=== PATIENT | female | born 1960 | race Caucasian/White ===

== ENCOUNTER → 2021-07-11 | Outpatient (CLI) | payer OTHER ==
[~2021-07-11] MED LIST: AZITHROMYCIN 2250 MG PO; BREO ELLIPTA 11 EACH INH; DILTIAZEM 24HR240 M1 PO; IPRATROPIU0.2 MG/1 M INH; PROAIR HFA8.5 GM INH; TRIAMTERENE-HC1 EAC3 PO
[2021-07-11 08:42] LABS: HEMOGLOBIN 12.1 gm/dL (12.0-15.0); MCH 28.7 pg (26.0-34.0); MCHC 33.6 g/dL (28.0-37.0); MCV 85.5 fL (80.0-100.0); RBC 4.21 mil/uL (4.20-5.00); WBC 6.6 thou/uL (4.0-11.0)
[2021-07-11 08:50] LABS: ALBUMIN 4.1 g/dL (3.4-5.0); CALCIUM 9.2 mg/dL (8.5-10.1); CREATININE 1.5 mg/dL (0.6-1.0); POTASSIUM 3.5 mmol/L (3.5-5.1)
[2021-07-11 08:56] LABS: PROTIME 10.9 Seconds (10.5-12.1)
[2021-07-11 09:07] LABS: URINE BILIRUBIN NEGATIVE (Negative); URINE BLOOD NEGATIVE (Negative); URINE CLARITY CLEAR; URINE COLOR YELLOW; URINE GLUCOSE-RANDOM* NEGATIVE (Negative); URINE KETONES NEGATIVE (Negative); URINE NITRITE-REFLEX NEGATIVE (Negative); URINE PROTEIN (DIPSTICK) NEGATIVE (Negative); URINE SPECIFIC GRAVITY 1.015 (1.005-1.035); URINE UROBILINOGEN 0.2 E.U./dl (0.2-1.0)
[2021-07-11 09:37] LABS: URINE LEUKOCYTES-REFLEX 1+ (Negative)
[2021-07-11 13:28] LABS: BACTERIA-REFLEX >30 Many /HPF (None Seen); CASTS None Seen /LPF (None Seen); CRYSTALS None Seen /LPF (None Seen); SQUAMOUS 0-3 Few /LPF (0-3); URINE RBC None Seen /HPF (NONE SEEN); URINE WBC-REFLEX 0-5 Rare /HPF (0-5)
== END ==
LOC: PAC 08:04
PROVIDERS: ATTEND Orthopaedic Surgery
DX: Z01.812 Encounter for preprocedural laboratory examination (principal); Z20.822 Contact with and (suspected) exposure to COVID-19; M16.11 Unilateral primary osteoarthritis, right hip

== ENCOUNTER 2021-07-18 06:23 | Day surgery (SDC) | payer OTHER ==
[~2021-07-18] VITALS: Ht 165.1 cm; Wt 71.7 kg
[2021-07-18 07:30] VITALS: BP 141/65
[2021-07-18 11:37] VITALS: BP 109/59
[2021-07-18 13:57] VITALS: BP 109/59
--- NOTE | 2021-07-18 15:13 | NUR ---
ASSUMED CARE OF PT FROM PACU AT 1100 THIS MORNING. PT HAD RT HIP TTL REPLACEMENT. PT IS A/OX4, SKIN INTACT WITH INCISION SITE ON RT HIP AREA WITH PLACIDO DRESSING, C/D/I. PT STATED SHE WOULD LIKE TO GO HOME TODAY. ASSESSMENTS NOTED IN CHART AND OTHERWISE UNREMARKABLE. CALL LIGHT AND OTHER NEEDS ARE IN REACH. FALL PRECAUTIONS ARE IN PLACE. MEDS AND TX GIVEN NEEDED AND SCHEDULED. PHYS JOHANN HAS EVALUATED PT AND STATED SHE IS CLEARED TO GO HOME. DISCHARGE PAPERWORK AND INSTRUCTIONS HAVE BEEN GIVEN TO PT AND SIGNED PAGE IS IN CHART. PT IS BEING XFERRED TO POV BY FAMILY PRESERVATION WORKER.
== END 2021-07-18 16:07 | disposition home or self-care (01) ==
LOC: OR 06:23 → TBA 06:24 → OR 09:00 → 4S 11:24 → OR 11:27
PROVIDERS: ATTEND Orthopaedic Surgery
DX: M16.11 Unilateral primary osteoarthritis, right hip (principal); M25.551 Pain in right hip; I10 Essential (primary) hypertension; J43.9 Emphysema, unspecified; Z98.890 Other specified postprocedural states; Z79.899 Other long term (current) drug therapy; Z87.891 Personal history of nicotine dependence; Z96.642 Presence of left artificial hip joint; Z98.41 Cataract extraction status, right eye; Z98.42 Cataract extraction status, left eye
CPT/HCPCS: 10102; 50010; 50101; 50382; 50414; 50855; 52304; 53078; 53368; 56524; 56527; 56528; 57093; 57095; 57103; 58637; 58959; 58960; 62110; 62850; 65085; 70005